=== PATIENT | male | born 1960 | race Caucasian/White ===

== ENCOUNTER 2017-11-27 08:00 | Observation (INO) ==
[2017-11-27 08:45] VITALS: BMI 30.9
--- NOTE | 2017-11-27 09:59 | Cardiology History & Physical ---
History of Present Illness Chief complaint: palpitations HPI: Mariia is a 57 year old male who is known to Dr. Barone's practice with a history of palpitations, precordial chest pain, PAF, PVCs, HTN, HLD and DEANNE whose recent Holter monitor showed runs of A Fib and PVCs. He is being admitted to observation today for planned outpatient antiarrhythmic therapy for initiation of Sotalol. Review of Systems - Constitutional Constitutional: Absent: chills, fatigue, fever(s) - EENMT Eyes: Absent: change in vision Balance: Absent: vertigo Mouth/Throat: Absent: sore throat - Cardiovascular Cardiovascular: Present: palpitations, edema. Absent: chest pain, syncope, dyspnea on exertion, orthopnea Vascular: Present: pedal edema - Respiratory Respiratory: Absent: cough, dyspnea, dyspnea on exertion - Gastrointestinal Gastrointestinal: Absent: abdominal pain, constipation, diarrhea, nausea, vomiting - Genitourinary Genitourinary: Absent: flank pain - Integumentary/Breasts Integumentary: Absent: rash - Neurological Neurological: Absent: dizziness - Endocrine Endocrine: Present: palpitations PFSH Patient Stated Medical History Cardiac Arrhythmia Yes Hypertension Yes Sleep Apnea Yes Clinic Medical History (Last Updated 09/20/17 @ 09:56 by JESSA Bullard ) Dyslipidemia (Chronic Medical) HTN (hypertension) (Chronic Medical) Hydrocele (Chronic Medical) Secondary central sleep apnea (Chronic Medical) Surgical History: none Family History: Family History (Last Reviewed 09/20/17 @ 09:57 by JESSA Bullard) Father High blood pressure Myeloma - Social History Smoking status: Never smoker Substance use type: does not use Alcohol intake frequency: holidays/special occasions only Household members: spouse Current occupational status: employed Current residence: Apartment/Private Home Medications Home Medications Medication Instructions Recorded Confirmed Type Triderm (Triamcinolone acetonide 1 applicatio TOP PRN PRN 30 Days 11/08/1611/27 History 0.1 %) topical cream #45 Zanaflex (Tizanidine) 4 mg capsule 4 mg PO PRN PRN cap 11/08/16 11/27/17 History Toprol XL metoprolol succinate ER 100 mg PO DAILY #30 tab 09/16/17 11/27/17 Rx 100 mg tablet,extended release 24 hr Zestoretic (lisinopril 20 1 tab PO DAILY #90 tab 11/06/17 11/27/17 Rx mg-hydrochlorothiazide 25 mg) tablet Acetaminophen [Acetaminophen ER] 2 tab PO BID PRN 11/27/17 11/27/17 History Aspirin Chewable [ASA] 81 mg PO DAILY 11/27/17 11/27/17 History Atorvastatin [Lipitor] 20 mg PO HS 11/27/17 11/27/17 History Cyclobenzaprine [Flexeril] 0.5 - 1 tab PO DAILY PRN 11/27/17 11/27/17 History Fluticasone Propionate [24 Hour 2 spray NS PRN PRN 11/27/17 11/27/17 History Allergy] Loratadine 10 mg PO DAILY PRN 11/27/17 11/27/17 History Oxymetazoline Nasal [place] [Afrin 2 spray TREY DAILY PRN 11/27/17 11/27/17 History Nasal [place]] Phenylephrine HCl [Nasal 10 mg PO DAILY PRN 11/27/17 11/27/17 History Decongestant PE] Sildenafil Citrate [Revatio] 20 mg PO PRN 11/27/17 11/27/17 History Allergies Allergy/AdvReac Type Severity Reaction Status Date / Time No Known Allergies Allergy Verified 11/27/17 08:29 Exam Vital signs: Temperature 97.1 F 11/27/17 08:22 Pulse Rate 64 11/27/17 09:36 Respiratory Rate 16 11/27/17 08:22 Blood Pressure 134/71 11/27/17 08:22 Pulse Oximetry 96 11/27/17 08:22 - Constitutional no acute distress, well nourished, cooperative - Routine HEENT Exam Head: Present: normocephalic ENT: Present: mucous membranes moist - Routine Neck Exam Absent: JVD, carotid bruit - Routine Chest/Breast/Axilla Exam Chest wall: Absent: tenderness - Routine Respiratory Exam Present: CTA bilaterally. Absent: dyspnea, rales, wheezes - Routine Cardiovascular Exam Present: RRR, no murmur - Routine Abdominal Exam Present: soft, non tender - Routine Extremities Exam Present: no edema - Routine Skin Exam Present: intact, dry, warm - Routine Neurological Exam Present: alert, oriented X3 - Routine Psychiatric Exam Present: normal affect, normal thought process Results 11/27/17 09:10 11/28/17 04:20 Cardiac Enzymes 11/27/17 Range/Units 09:10 AST 19 (17-59) U/L CBC 11/27/17 Range/Units 09:10 WBC 6.2 (4.5-11.0) T/MM3 RBC 5.16 (4.50-5.90) M/MM3 Hgb 15.1 (13.5-17.5) GM/DL Hct 44.1 (41-53) % Plt Count 182 (130-400) T/MM3 Neut # (Auto) 4.0 (1.8-7.7) T/MM3 Lymph # (Auto) 1.3 (1-4.8) T/MM3 [place] # (Auto) 0.7 (0-0.8) T/MM3 Eos # (Auto) 0.1 (0-0.5) T/MM3 Baso # (Auto) 0.0 (0-0.2) T/MM3 Comprehensive Metabolic Panel 11/27/17 Range/Units 09:10 Sodium 142 (136-146) MEQ/L Potassium 4.4 (3.6-5) MEQ/L Chloride 104 (98-107) MEQ/L Carbon Dioxide 27 (22-30) MEQ/L BUN 16.0 (9-20) MG/DL Creatinine 0.7 L (0.8-1.5) mg/dL Glucose 101 (75-110) MG/DL Calcium 9.4 (8.4-10.2) MG/DL AST 19 (17-59) U/L ALT 19 (1-50) U/L Alkaline Phosphatase 69 (38-126) U/L Total Protein 7.1 (6.3-8.2) g/dL Albumin 4.4 (3.5-5.0) g/dL Intake and Output 11/26/17 11/27/17 11/27/17 22:59 06:59 14:59 Other: Weight 234 lb 9.149 oz Patient Weight 11/28/17 06:59 Weight 234 lb 9.149 oz EKG interpretations - EKG EKG results cardiology: WNL, sinus rhythm Hospital Course This is a general summary of the patient's hospital course. For more details refer to the complete medical record. Time spent with patient: 25 - 35 minutes Resuscitation Status: Full Code Assessment and Plan - Assessment and Plan (1) Palpitations Current visit: Yes Status: Acute recent Holter monitor showed runs of A Fib and PVCs. He is being admitted to observation today for planned outpatient antiarrhythmic therapy for initiation of Sotalol. - SCR 0.7, Mag 2.1, TSH pending - EKG: SR - Monitor cardiac telemetry for arrhythmia of immediate concern - EKG in am to measure QT (2) Precordial pain Current visit: Yes Status: Chronic Recent stress test showed no significant ischemia, recent echo stable (3) Paroxysmal atrial fibrillation Current visit: Yes Status: Acute antiarrhythmic therapy for initiation of Sotalol (4) Ventricular premature depolarization Current visit: Yes Status: Acute antiarrhythmic therapy for initiation of Sotalol (5) Essential (primary) hypertension Current visit: Yes Status: Chronic Continue Lisinopril /HCTZ (6) Mixed hyperlipidemia Current visit: Yes Status: Chronic Takes Atorvastatin. PCP manages (7) Obstructive sleep apnea Current visit: Yes Status: Chronic PCP manages
[2017-11-27] MEDS: SOTALOL 80 MG TABLET PO SCH ×2 (10:17→21:25)
[2017-11-27] MEDS ORDERED: CYCLOBENZAPRINE 5 MG TABLET PO PRN (13:08)
[2017-11-27] MEDS ORDERED: FLUTICASONE NASAL SPRAY 50mcg EA NOSTRIL PRN (13:08)
[2017-11-27] MEDS ORDERED: OXYMETAZOLINE 0.05% NASAL SPRAY 15ml NAS PRN (13:08)
[2017-11-27] MEDS ORDERED: TRIAMCINOLONE 0.1% CREAM 15 G TUBE TOP PRN (13:08)
[2017-11-27] MEDS ORDERED: LORATADINE 10 MG TABLET PO PRN (13:08)
[2017-11-27] MEDS ORDERED: SILDENAFIL 20 MG PO PRN (13:15)
[2017-11-27] MEDS ORDERED: ATORVASTATIN 20 MG TABLET PO SCH (21:00)
[2017-11-28 07:15] VITALS: BP 149/72; RESP 17; TEMP 97; O2SAT 95
[2017-11-28] MEDS: SOTALOL 80 MG TABLET PO SCH (08:26)
[2017-11-28 08:28] VITALS: PULSE 66
[2017-11-28] MEDS ORDERED: ASPIRIN 81 MG CHEWABLE TABLET PO SCH (09:00)
[2017-11-28] MEDS ORDERED: LISINOPRIL/HCTZ 20/25 MG TABLET PO SCH (09:00)
--- NOTE | 2017-11-28 09:36 | Discharge Summary ---
Discharge Information Date of admission: 11/27/17 08:10 Anticipated date of discharge: 11/28/17 Attending Physician: Kingston Barone MD Primary care physician: Zan Gibson, DO - Discharge Diagnosis (1) Palpitations Status: Acute (2) Precordial pain Status: Chronic (3) Paroxysmal atrial fibrillation Status: Acute (4) Ventricular premature depolarization Status: Acute (5) Essential (primary) hypertension Status: Chronic (6) Mixed hyperlipidemia Status: Chronic (7) Obstructive sleep apnea Status: Chronic atrial fibrillation - Laboratory Labs: 11/27/17 09:10 11/28/17 04:20 History of Present Illness HPI: Mariia is a 57 year old male who is known to Dr. Barone's practice with a history of palpitations, precordial chest pain, PAF, PVCs, HTN, HLD and DEANNE whose recent Holter monitor showed runs of A Fib and PVCs. He is being admitted to observation today for planned outpatient antiarrhythmic therapy for initiation of Sotalol. Hospital Course This is a general summary of the patient's hospital course. For more details refer to the complete medical record. Hospital course: Palpitations Current visit: Yes Status: Acute - recent Holter monitor showed runs of A Fib and PVCs. He is being admitted to observation today for planned outpatient antiarrhythmic therapy for initiation of Sotalol. - SCR 0.7, Mag 2.1, TSH pending - EKG: SR - Monitor cardiac telemetry for arrhythmia of immediate concern - EKG in am to measure QT Precordial pain Current visit: Yes Status: Chronic - Recent stress test showed no significant ischemia, recent echo stable Paroxysmal atrial fibrillation Current visit: Yes Status: Acute - antiarrhythmic therapy for initiation of Sotalol Ventricular premature depolarization Current visit: Yes Status: Acute - antiarrhythmic therapy for initiation of Sotalol Essential (primary) hypertension Current visit: Yes Status: Chronic - Continue Lisinopril /HCTZ Mixed hyperlipidemia Current visit: Yes Status: Chronic - Takes Atorvastatin. PCP manages Obstructive sleep apnea Current visit: Yes Status: Chronic - PCP manages Time spent with patient: 25 - 35 minutes Resuscitation Status: Full Code Exam Vital signs: Temperature 97 F 11/28/17 07:00 Pulse Rate 66 11/28/17 08:26 Respiratory Rate 17 11/28/17 07:00 Blood Pressure 149/72 H 11/28/17 07:00 Pulse Oximetry 95 11/28/17 07:00 - Constitutional no acute distress, well nourished, cooperative - Routine HEENT Exam Head: Present: normocephalic ENT: Present: mucous membranes moist - Routine Neck Exam Absent: JVD, carotid bruit - Routine Chest/Breast/Axilla Exam Chest wall: Absent: tenderness - Routine Respiratory Exam Present: CTA bilaterally. Absent: dyspnea, rales, wheezes - Routine Cardiovascular Exam Present: S1, S2, no murmur, irregular rhythm - Routine Abdominal Exam Present: soft, non tender - Routine Extremities Exam Present: no edema - Routine Skin Exam Present: intact, dry, warm - Routine Neurological Exam Present: alert, oriented X3 - Routine Psychiatric Exam Present: normal affect, normal thought process Results 11/27/17 09:10 11/28/17 04:20 Cardiac Enzymes 11/27/17 Range/Units 09:10 AST 19 (17-59) U/L Comprehensive Metabolic Panel 11/27/17 11/28/17 Range/Units 09:10 04:20 Sodium 142 141 (136-146) MEQ/L Potassium 4.4 4.5 (3.6-5) MEQ/L Chloride 104 104 (98-107) MEQ/L Carbon Dioxide 27 25 (22-30) MEQ/L BUN 16.0 17.0 (9-20) MG/DL Creatinine 0.7 L 0.9 D (0.8-1.5) mg/dL Glucose 101 99 (75-110) MG/DL Calcium 9.4 8.9 (8.4-10.2) MG/DL AST 19 (17-59) U/L ALT 19 (1-50) U/L Alkaline Phosphatase 69 (38-126) U/L Total Protein 7.1 (6.3-8.2) g/dL Albumin 4.4 (3.5-5.0) g/dL Intake and Output 11/27/17 11/28/17 11/28/17 22:59 06:59 14:59 Intake Total 318 / 318 100 / 100 Output Total 530 / 530 250 / 250 Balance -212 / -212 -150 / -150 Intake: Oral 318 / 318 100 / 100 Output: Urine 530 / 530 250 / 250 Other: Urine Appearance Clear Clear Urine Color Yellow Yellow Urine Odor Normal Normal Weight 232 lb 5.875 oz Patient Weight 11/29/17 06:59 Weight 232 lb 5.875 oz - EKG Interpretation EKG: sinus rhythm Discharge Plan - Med Rec/Dispo Referrals/Follow Up: Kingston Barone MD [Physician] - 12/10/17 10:10 am Tanya Instructions: Sotalol (By mouth) (Betapace, Betapace AF, Sorine, Sotylize) Prescriptions: New Sotalol [Betapace] 40 mg PO BID #30 tab Continue Fluticasone Propionate [24 Hour Allergy] 2 spray NS PRN PRN PRN Reason: Allergy Symptoms Loratadine 10 mg PO DAILY PRN PRN Reason: Allergy Symptoms Oxymetazoline Nasal [place] [Afrin Nasal [place]] 2 spray TREY DAILY PRN PRN Reason: ALLERGIES Acetaminophen [Acetaminophen ER] 2 tab PO BID PRN PRN Reason: Pain Atorvastatin [Lipitor] 20 mg PO HS Sildenafil Citrate [Revatio] 20 mg PO PRN Aspirin Chewable [ASA] 81 mg PO DAILY Cyclobenzaprine [Flexeril] 0.5 - 1 tab PO DAILY PRN PRN Reason: Muscle Spasm Phenylephrine HCl [Nasal Decongestant PE] 10 mg PO DAILY PRN PRN Reason: Sinus Headache Zanaflex (Tizanidine) 4 mg capsule 4 mg PO PRN PRN cap PRN Reason: Pain Zestoretic (lisinopril 20 mg-hydrochlorothiazide 25 mg) tablet 1 tab PO DAILY #90 tab Triderm (Triamcinolone acetonide 0.1 %) topical cream 1 applicatio TOP PRN PRN 30 Days #45 PRN Reason: Allergy Symptoms Discontinued Toprol XL metoprolol succinate ER 100 mg tablet,extended release 24 hr 100 mg PO DAILY #30 tab - Disposition 01 Discharged Home, Self-Care - Dismissal Complete Discharge Instructions are:: Complete
== END 2017-11-28 10:35 | disposition home or self-care (01) ==
LOC: SRG
PROVIDERS: ADMIT Internal Medicine Cardiovascular Disease; ATTEND Internal Medicine Cardiovascular Disease